=== PATIENT | female | born 1965 ===

== ENCOUNTER 2025-04-27 18:38 | Emergency (ER) | payer SELFPAY ==
[2025-04-27] MEDS ORDERED: Sodium Chloride 0.9% 10 ML Syringe FLUSH PRN (18:47)
[2025-04-27 19:30] LABS: MEAN PLATELET VOLUME 10.5 fL (6.0-10.0); PLATELET COUNT,PLT 257.0 K/uL (150-500); RED BLOOD CELL COUNT 4.37 M/uL (3.80-5.80); RED CELL DISTRIBUTION WIDTH 12.5 % (11.0-16.0); WHITE BLOOD CELL COUNT,WBC 6.9 K/uL (4.0-11.0)
[2025-04-27 19:51] LABS: BLOOD UREA NITROGEN,BUN 15.0 mg/dL (8-26); CARBON DIOXIDE,CO2 30.7 mmol/L (21.0-32.0); CHLORIDE,CL 109.0 mmol/L (98-107); CREATININE 0.71 mg/dL (0.55-1.02); EST CRCL DRUG DOSING (CG) 79.87 mL/min; ESTIMATED GFR 98.0 mL/min (>60); GLUCOSE RANDOM 134.0 mg/dL (74-100); POTASSIUM,K 3.5 mmol/L (3.5-5.1); SODIUM,NA 146.0 mmol/L (136-145)
[2025-04-27 19:59] LABS: TROPONIN I HIGH SENSITIVITY 6.6 pg/ml (<=60.4)
[2025-04-27] MEDS: Metoprolol Tartrate 5 MG/5 ML SDV IVPUSH ONE (21:06)
[2025-04-27] MEDS: hydrALAZINE 20 MG/ML SDV IVPUSH ONE (21:19)
== END 2025-04-27 22:38 | disposition home or self-care (01) ==
LOC: MERGE 18:38 → LB.ED 18:38
DX: R00.2 Palpitations (principal); I11.9 Hypertensive heart disease without heart failure; Z79.899 Other long term (current) drug therapy
CPT/HCPCS: 36415; 80048; 83735; 84443; 84484; 85027; 85379; 93005; 93010; 93242; 96361; 96374; 99284; 99285-25; J0360; J7030